=== PATIENT | female | born 1960 | race Caucasian/White ===

== ENCOUNTER 2024-08-04 06:00 | Day surgery (SDC) | payer MEDICARE, BC, SELFPAY ==
[2024-08-04 07:02] VITALS: BMI 24.1
[2024-08-04 07:03] VITALS: BP 121/81
[2024-08-04 09:13] VITALS: BP 111/64
[2024-08-04 09:15] VITALS: BP 109/66
[2024-08-04 09:30] VITALS: BP 128/71
[2024-08-04 09:45] VITALS: BP 123/66
== END 2024-08-04 10:02 | disposition home or self-care (01) ==
LOC: GI 06:00
PROVIDERS: ATTENDING PHYSICIAN Internal Medicine Gastroenterology
DX: Z12.11 Encounter for screening for malignant neoplasm of colon (principal); K64.0 First degree hemorrhoids; D12.2 Benign neoplasm of ascending colon; D17.5 Benign lipomatous neoplasm of intra-abdominal organs; Z98.890 Other specified postprocedural states; Z86.0100 Personal history of colon polyps, unspecified
CPT/HCPCS: 45385; 88305

== ENCOUNTER → 2024-11-04 13:18 | Outpatient (REF) | payer MEDICARE, OTHER, SELFPAY | LOC: WDC 13:18 | PROVIDERS: ATTENDING PHYSICIAN Hospitalist; FAMILY PHYSICIAN Nurse Practitioner | DX: Z13.820 Encounter for screening for osteoporosis (principal); Z12.31 Encounter for screening mammogram for malignant neoplasm of breast; Z78.0 Asymptomatic menopausal state | CPT/HCPCS: 77063; 77067; 77080 ==

== ENCOUNTER → 2024-11-14 10:10 | Outpatient (REF) | payer MEDICARE, OTHER, SELFPAY | LOC: WDC 10:10 | PROVIDERS: ATTENDING PHYSICIAN Hospitalist; FAMILY PHYSICIAN Nurse Practitioner | DX: R92.8 Other abnormal and inconclusive findings on diagnostic imaging of breast (principal) | CPT/HCPCS: 76642 ==

== ENCOUNTER → 2024-11-18 07:05 | Outpatient (REF) | payer MEDICARE, OTHER, SELFPAY | LOC: WDC 07:05 | PROVIDERS: ATTENDING PHYSICIAN Hospitalist | DX: N63.20 Unspecified lump in the left breast, unspecified quadrant (principal); N63.21 Unspecified lump in the left breast, upper outer quadrant | CPT/HCPCS: 19083; 88305; A4648 ==

== ENCOUNTER → 2025-01-09 08:53 | Outpatient (REF) | payer MEDICARE, BC, SELFPAY | LOC: WDC 08:53 | PROVIDERS: ATTENDING PHYSICIAN Surgery | DX: N63.21 Unspecified lump in the left breast, upper outer quadrant (principal) | CPT/HCPCS: 19285; A4648 ==

== ENCOUNTER 2025-01-10 06:33 | Day surgery (SDC) | payer MEDICARE, BC, SELFPAY ==
[2025-01-02 13:40] VITALS: BMI 24.1
[2025-01-10 08:18] VITALS: BMI 24.1
[2025-01-10 08:19] VITALS: BP 133/87
[2025-01-10] MEDS: TYLENOL 1000 MG PO (08:23)
[2025-01-10] MEDS: NORMOSOL-R/PLASMALYTE-A 1000 IV (08:45)
[2025-01-10 10:33] VITALS: BP 88/57
[2025-01-10 10:34] VITALS: BP 106/62
--- NOTE | 2025-01-10 10:37 | W.IMMPOSTOP ---
Surgical Immed Post Op Note
-
Primary Surgeon: Sindhu
Assisting Surgeon: None
Pre-op Diagnosis: Radial scar left breast
Post-op Diagnosis: Same
Procedure Performed: Left localized lumpectomy
Anesthesia Type: TIVA
Specimen / Cultures: Left lumpectomy
Estimated Blood Loss: 4cc
Complications: None
Operative Findings: Mass, clip, and reflector in specimen
--- NOTE | 2025-01-10 10:38 | OR.RPT ---
Operative Report
Operative Report
Date of procedure: 01/10/2025
Surgeon: Sindhu
Preoperative diagnosis: Left breast radial scar
Postop diagnosis: Left breast radial scar
Procedure: Left localized lumpectomy
The patient is a 64-year-old female who experienced an interval change on screening mammography leading to ultrasound-guided core biopsy showing a radial scar. She presents for excision of the area after localization. On the day prior to the
procedure the patient presented to the [place] [facility] where Thelma reflector was placed at the appropriate area. On the day of the surgery she presented to same-day surgical services unit where she was prepped. She verified site and
procedure and DVT and antibiotic prophylaxis were provided.
She was transferred to the operating room and in the supine position intravenous sedation was delivered. The left breast was prepped and draped in usual sterile fashion. An appropriate timeout was performed by all staff members. All tissues were
anesthetized with 1% lidocaine plain and a curvilinear incision was made in the breast using a plate overlying the area of highest Thelma signal. Skin flaps were elevated with the cautery and dissection was carried down to the strong Thelma signal. A
wide lumpectomy was performed using the cautery. Time out of body was noted and the specimen was oriented for the pathologist. Specimen radiography confirmed the presence of the mass, clip, and reflector within it.
Hemostasis was maintained with the cautery or 3-0 silk tie. Marcaine 0.5% plain was instilled into all tissues. A portion of Surgicel was placed in the resection cavity and the wound was closed using simple interrupted 2-0 Polysorb on deep and
intermediate tissues. Subcutaneous tissue was closed with simple interrupted 3-0 Polysorb and epidermis was closed with a running subcuticular 4 Monocryl. Surgical glue and sterile compressive dressings were applied. All sponge needle and
instrument counts were correct and the patient was transferred to same-day surgical services unit for recovery
()
[2025-01-10 10:45] VITALS: BP 107/66
[2025-01-10 11:00] VITALS: BP 112/69
[2025-01-10 11:15] VITALS: BP 123/69
== END 2025-01-10 11:40 | disposition home or self-care (01) ==
LOC: SDS 06:33
PROVIDERS: ATTENDING PHYSICIAN Surgery; FAMILY PHYSICIAN Hospitalist
DX: L90.5 Scar conditions and fibrosis of skin (principal); N64.89 Other specified disorders of breast
CPT/HCPCS: 19301; 76098; 88307; 88341; 88342; 88360